=== PATIENT | male | born 1985 | race Two or more races ===

== ENCOUNTER 2022-10-01 09:08 | Inpatient (IN) | payer OTHER ==
[~2022-10-01] VITALS: Ht 177.8 cm; Wt 99.8 kg
[~2022-10-01 09:08] MED LIST: BUPIVACAINE 0.5 % PF 150 MG/30 ML VIAL ONE; CELLULOSE,OXIDIZED 1 EA PACK MC ONE; CELLULOSE,OXIDIZED 1 EACH EACH MC ONE; HEMOSTATIC MATRIX 8 ML 1 EACH PAD MC ONE; LIDOCAINE HCL/MPF 1% 30 ML VIAL IJ ONE
[2022-10-01] MEDS ORDERED: FENTANYL PF 250MCG/5ML AMPUL ONE (10:39)
[2022-10-01] MEDS ORDERED: FAMOTIDINE/PF INJ 20 MG/2 ML VIAL IV ONE (10:40)
[2022-10-01] MEDS ORDERED: FENTANYL PF 100MCG/2ML AMPUL ONE (10:40)
[2022-10-01] MEDS ORDERED: ATRACURIUM 100MG/10 ML MDV IV ONE (10:40)
[2022-10-01] MEDS ORDERED: HEPARIN SODIUM, PORCINE 5000 UNITS/1 ML VIAL ONE (10:41)
[2022-10-01] MEDS ORDERED: protAMINE SULFATE 10 MG/ML VIAL IV ONE (10:41)
[2022-10-01] MEDS ORDERED: DEXTROSE 50%-WATER 50 ML DISP.SYRIN ONE (10:56)
[2022-10-01 11:01] LABS: BASOPHILS # (AUTO) 0.2 K/uL (0.0-0.2); BASOPHILS % (AUTO) 1.7 % (0.0-2.0); EOSINOPHILS # (AUTO) 0.3 K/uL (0.0-0.7); EOSINOPHILS % (AUTO) 3.2 % (0.0-6.0); HEMATOCRIT 39 % (39-51); HEMOGLOBIN 13.2 g/dL (13.5-17.5); LYMPHOCYTES # (AUTO) 2.1 K/uL (0.8-4.8); LYMPHOCYTES % (AUTO) 23.5 % (20.0-44.0); MEAN CORPUSCULAR HEMOGLOBIN 30 PG (26.0-33.0); MEAN CORPUSCULAR HGB CONC 34 g/dl (31.0-36.0); MEAN CORPUSCULAR VOLUME 87 fL (80-96); MONOCYTES % (AUTO) 10.7 % (2.0-12.0); NEUTROPHILS # (AUTO) 5.6 K/uL (1.8-8.9); NEUTROPHILS % (AUTO) 60.9 % (43.0-81.0); PLATELET COUNT (AUTO) 192 K/uL (150-450); RED BLOOD CELL COUNT(AUTO) 4.47 MIL/uL (4.5-6.0); RED CELL DISTRIBUTION WIDTH 15.2 % (11.5-15.0); WHITE BLOOD COUNT (AUTO) 9.2 K/uL (4.3-11.0)
[2022-10-01 11:29] LABS: CALCIUM, SERUM 9.9 mg/dL (8.5-10.1); CREATININE 11.7 mg/dL (0.6-1.3); POTASSIUM 6.3 mmol/L (3.5-5.1)
[2022-10-01 13:00] VITALS: BP 147/93; TEMP 97.8; O2SAT 96
[2022-10-01] MEDS ORDERED: SERT50TA12 PO (13:07)
[2022-10-01] MEDS ORDERED: LORA-259 PO (13:07)
[2022-10-01] MEDS ORDERED: CALC667C6 PO (13:07)
[2022-10-01] MEDS ORDERED: HYDR-3980 PO (13:07)
[2022-10-01] MEDS ORDERED: PREG-59 PO (13:07)
[2022-10-01] MEDS ORDERED: LATA2.5D15 EACHEYE (13:07)
[2022-10-01] MEDS ORDERED: AMLO-212 PO (13:07)
[2022-10-01] MEDS ORDERED: FOLI0.8T2 PO (13:07)
[2022-10-01] MEDS ORDERED: NIFE90TA61 PO (13:07)
[2022-10-01] MEDS ORDERED: LEVO75TA7 PO (13:07)
[2022-10-01] MEDS ORDERED: DORZ10DR11 EACHEYE (13:07)
[2022-10-01 13:15] VITALS: BP 147/93; TEMP 97.8; O2SAT 96
[2022-10-01] MEDS: NIFEdipine XL (30MG) 30 MG TAB PO SCH (14:30)
[2022-10-01] MEDS ORDERED: ACETAMINOPHEN 325 MG TABLET PO PRN (14:30)
[2022-10-01] MEDS ORDERED: LORAZEPAM 1 MG TABLET PO PRN (14:30)
[2022-10-01] MEDS ORDERED: ONDANSETRON HCL/PF 4 MG/2 ML VIAL IVP PRN (14:30)
[2022-10-01] MEDS ORDERED: DEXTROSE 50%-WATER 50 ML DISP.SYRIN IV PRN (14:30)
[2022-10-01] MEDS: AMLODIPINE BESYLATE 5 MG TABLET PO SCH (14:30)
[2022-10-01 16:00] VITALS: BP 138/74; TEMP 97.8; O2SAT 96
[2022-10-01] MEDS: PREGABALIN 100 MG CAPSULE PO SCH (17:06)
[2022-10-01] MEDS: BLOOD SUGAR DIAGNOSTIC 1 EACH STRIP IN SCH ×2 (17:15→21:29)
[2022-10-01] MEDS: TIMOLOL MAL/DORZOLAM HCL OPHTH 10 ML BOTTLE EACHEYE SCH (17:15)
[2022-10-01] MEDS: CALCIUM ACETATE 667 MG CAP/TAB PO SCH (17:18)
[2022-10-01 19:30] VITALS: BP 154/97; TEMP 99.2; O2SAT 96
[2022-10-01] MEDS: HYDROCODONE/APAP 10/325MG TABLET PO PRN (20:44)
[2022-10-01] MEDS ORDERED: LATANOPROST EYE DROP 0.005% 2.5 ML BOTTLE EACHEYE SCH (22:00)
[2022-10-02 00:22] VITALS: BP 97/72; TEMP 98; O2SAT 97
[2022-10-02] MEDS: BLOOD SUGAR DIAGNOSTIC 1 EACH STRIP IN SCH ×3 (06:36→17:41)
[2022-10-02 06:57] LABS: BASOPHILS # (AUTO) 0.1 K/uL (0.0-0.2); BASOPHILS % (AUTO) 1.5 % (0.0-2.0); EOSINOPHILS # (AUTO) 0.4 K/uL (0.0-0.7); EOSINOPHILS % (AUTO) 4.8 % (0.0-6.0); HEMATOCRIT 40 % (39-51); HEMOGLOBIN 12.8 g/dL (13.5-17.5); LYMPHOCYTES # (AUTO) 1.9 K/uL (0.8-4.8); MEAN CORPUSCULAR HEMOGLOBIN 29 PG (26.0-33.0); MEAN CORPUSCULAR HGB CONC 32 g/dl (31.0-36.0); MEAN CORPUSCULAR VOLUME 89 fL (80-96); MONOCYTES % (AUTO) 10.6 % (2.0-12.0); NEUTROPHILS # (AUTO) 5.9 K/uL (1.8-8.9); NEUTROPHILS % (AUTO) 63.1 % (43.0-81.0); PLATELET COUNT (AUTO) 183 K/uL (150-450); RED BLOOD CELL COUNT(AUTO) 4.49 MIL/uL (4.5-6.0); RED CELL DISTRIBUTION WIDTH 15.3 % (11.5-15.0); WHITE BLOOD COUNT (AUTO) 9.3 K/uL (4.3-11.0)
[2022-10-02] MEDS ORDERED: LEVOTHYROXINE SODIUM 75 MCG TABLET PO SCH (07:30)
[2022-10-02] MEDS ORDERED: PANTOPRAZOLE 40 MG TABLET.DR PO SCH (07:30)
[2022-10-02 07:32] LABS: CALCIUM, SERUM 9.6 mg/dL (8.5-10.1); MAGNESIUM 2.4 mg/dL (1.8-2.4); POTASSIUM 5.5 mmol/L (3.5-5.1)
[2022-10-02 07:37] LABS: THYROID STIMULATING HORMONE 1.072 uIU/mL (0.358-3.74)
[2022-10-02] MEDS: MORPHINE SULFATE INJ 2 MG/ML DISP.SYRIN IV PRN ×2 (07:55→15:52)
[2022-10-02] MEDS: CALCIUM ACETATE 667 MG CAP/TAB PO SCH ×3 (07:55→17:41)
[2022-10-02 08:37] LABS: CREATININE 10.2 mg/dL (0.6-1.3); PHOSPHORUS 10.2 mg/dL (2.5-4.9)
[2022-10-02] MEDS: PREGABALIN 100 MG CAPSULE PO SCH ×3 (08:38→17:41)
[2022-10-02] MEDS: TIMOLOL MAL/DORZOLAM HCL OPHTH 10 ML BOTTLE EACHEYE SCH ×2 (08:38→17:39)
[2022-10-02] MEDS: AMLODIPINE BESYLATE 5 MG TABLET PO SCH (08:40)
[2022-10-02] MEDS: HYDROCODONE/APAP 10/325MG TABLET PO PRN ×2 (08:41→17:41)
[2022-10-02] MEDS: NIFEdipine XL (30MG) 30 MG TAB PO SCH (08:41)
[2022-10-02] MEDS ORDERED: VIT B CMPLX 3/FA/VIT C/BIOTIN 1 TAB TABLET PO SCH (09:00)
[2022-10-02] MEDS ORDERED: SERTRALINE HCL 50 MG TABLET PO SCH (09:00)
[2022-10-02] MEDS: INSULIN REGULAR, HUMAN 100 UNIT/ML 3 ML VIAL SQ PRN ×2 (11:47→17:46)
[2022-10-02] MEDS ORDERED: ALTEPLASE CATHFLO 2 MG/VIAL XX ONE ×2 (13:30→14:00)
[2022-10-02 15:54] VITALS: BP 158/94; TEMP 97.9; O2SAT 98
[2022-10-03] MEDS ORDERED: NEOMY SULF/BACITRAC ZN/POLY 15 GM TUBE TP SCH (09:00)
== END 2022-10-02 22:33 | disposition home health service (06) | DRG 622 ==
LOC: DS 09:08 → MED 12:37 → TELE 13:42
PROC: 5A1D70Z Performance of Urinary Filtration, Intermittent, Less than 6 Hours Per Day (ICD-10-PCS; principal; 2022-10-01)
PROC: 0JBQ0ZZ Excision of Right Foot Subcutaneous Tissue and Fascia, Open Approach (ICD-10-PCS; 2022-10-02)
PROC: 0JBR0ZZ Excision of Left Foot Subcutaneous Tissue and Fascia, Open Approach (ICD-10-PCS; 2022-10-02)
DX: E87.5 Hyperkalemia (principal); N18.6 End stage renal disease; I12.0 Hypertensive chronic kidney disease with stage 5 chronic kidney disease or end stage renal disease; L97.418 Non-pressure chronic ulcer of right heel and midfoot with other specified severity; L97.428 Non-pressure chronic ulcer of left heel and midfoot with other specified severity; E11.22 Type 2 diabetes mellitus with diabetic chronic kidney disease; Z99.2 Dependence on renal dialysis; E03.9 Hypothyroidism, unspecified; E66.9 Obesity, unspecified; E11.42 Type 2 diabetes mellitus with diabetic polyneuropathy; E11.621 Type 2 diabetes mellitus with foot ulcer; M89.9 Disorder of bone, unspecified; Z68.31 Body mass index [BMI] 31.0-31.9, adult
CPT/HCPCS: 36415; 71045-TC; 80048-TC; 80061-TC; 82962-TC; 83735-TC; 84100-TC; 84132-TC; 84443-TC; 85025-TC; 90935-TC; A6403; G0378; J1644; J1815; J2270; J2720; J2997; J3010; J3490; J7030

== ENCOUNTER 2022-11-13 06:04 | Inpatient (IN) | payer OTHER ==
[~2022-11-13] VITALS: Ht 177.8 cm; Wt 101.6 kg
[~2022-11-13 06:04] MED LIST changes: +AMLO-212 PO; -BUPIVACAINE 0.5 % PF 150 MG/30 ML VIAL ONE; +CALC667C6 PO; -CELLULOSE,OXIDIZED 1 EA PACK MC ONE; -CELLULOSE,OXIDIZED 1 EACH EACH MC ONE; +DORZ10DR11 EACHEYE; +FOLI0.8T2 PO; -HEMOSTATIC MATRIX 8 ML 1 EACH PAD MC ONE; +HYDR-3980 PO; +LATA2.5D15 EACHEYE; +LEVO75TA7 PO; -LIDOCAINE HCL/MPF 1% 30 ML VIAL IJ ONE; +LORA-259 PO; +NIFE90TA61 PO; +PREG-59 PO; +SERT50TA12 PO
[2022-11-13 07:30] VITALS: BP 189/106; TEMP 98.2; O2SAT 96
[2022-11-13] MEDS ORDERED: ANESTHESIA TRAY IN PYXIS 1 EA TRAY MC ONE (08:40)
[2022-11-13] MEDS ORDERED: FENTANYL PF 100MCG/2ML AMPUL ONE ×3 (08:42→16:21)
[2022-11-13] MEDS ORDERED: PROPOFOL 0 ML ONE (08:42)
[2022-11-13] MEDS ORDERED: FAMOTIDINE/PF INJ 20 MG/2 ML VIAL IV ONE (08:43)
[2022-11-13] MEDS ORDERED: MIDAZOLAM HCL 2 MG/2ML VIAL ONE ×2 (08:43→14:36)
[2022-11-13] MEDS ORDERED: LIDOCAINE HCL/MPF 1% 30 ML VIAL IJ ONE (08:45)
[2022-11-13] MEDS ORDERED: CELLULOSE,OXIDIZED 1 EA PACK MC ONE (08:45)
[2022-11-13 09:52] LABS: BASOPHILS # (AUTO) 0.1 K/uL (0.0-0.2); BASOPHILS % (AUTO) 1.4 % (0.0-2.0); EOSINOPHILS # (AUTO) 0.2 K/uL (0.0-0.7); EOSINOPHILS % (AUTO) 2.6 % (0.0-6.0); HEMATOCRIT 37 % (39-51); LYMPHOCYTES # (AUTO) 1.6 K/uL (0.8-4.8); LYMPHOCYTES % (AUTO) 17.2 % (20.0-44.0); MEAN CORPUSCULAR HEMOGLOBIN 29 PG (26.0-33.0); MEAN CORPUSCULAR HGB CONC 32 g/dl (31.0-36.0); MEAN CORPUSCULAR VOLUME 88 fL (80-96); MONOCYTES # (AUTO) 1.1 K/uL (0.1-1.30); MONOCYTES % (AUTO) 12.4 % (2.0-12.0); NEUTROPHILS # (AUTO) 6.2 K/uL (1.8-8.9); NEUTROPHILS % (AUTO) 66.4 % (43.0-81.0); PLATELET COUNT (AUTO) 185 K/uL (150-450); RED BLOOD CELL COUNT(AUTO) 4.21 MIL/uL (4.5-6.0); WHITE BLOOD COUNT (AUTO) 9.3 K/uL (4.3-11.0)
[2022-11-13 10:03] LABS: CALCIUM, SERUM 9.6 mg/dL (8.5-10.1); POTASSIUM 4.4 mmol/L (3.5-5.1)
[2022-11-13 10:18] LABS: CREATININE 8.4 mg/dL (0.6-1.3)
[2022-11-13] MEDS ORDERED: PAPAVERINE HCL 30 MG/ML 10 MLVIAL ONE (12:52)
[2022-11-13] MEDS ORDERED: CELLULOSE,OXIDIZED 1 EACH EACH MC ONE ×2 (12:53)
[2022-11-13] MEDS ORDERED: BUPIVACAINE 0.5 % PF 150 MG/30 ML VIAL ONE ×2 (14:42→14:47)
[2022-11-13] MEDS ORDERED: LABETALOL HCL IV 100MG VIAL ONE (15:19)
[2022-11-13] MEDS ORDERED: hydrALAZINE HCL IV 20 MG VIAL ONE (15:27)
[2022-11-13] MEDS ORDERED: POLYMYXIN B SULFATE 500,000 UNITS ONE (15:38)
[2022-11-13] MEDS ORDERED: LIDOCAINE 1% INJ 50 ML MDV IJ ONE (16:02)
[2022-11-13] MEDS ORDERED: HYDROMORPHONE 1 MG/1 ML DISP.SYRIN ONE (17:39)
[2022-11-13] MEDS: HYDROCODONE/APAP 5/325MG TABLET PO PRN (18:26)
[2022-11-13] MEDS ORDERED: LORAZEPAM INJ 2 MG/ML VIAL IV PRN (20:30)
[2022-11-13] MEDS: MORPHINE SULFATE INJ 2 MG/ML DISP.SYRIN IV PRN (23:24)
[2022-11-14] MEDS: HYDROCODONE/APAP 5/325MG TABLET PO PRN ×2 (02:13→09:37)
[2022-11-14] MEDS: MORPHINE SULFATE INJ 2 MG/ML DISP.SYRIN IV PRN ×3 (03:24→14:26)
[2022-11-14 07:30] VITALS: BP 121/81; TEMP 98.1; O2SAT 100
[2022-11-14] MEDS ORDERED: HYDR-3973 PO (12:03)
[2022-11-15 03:06] LABS: HEPATITIS B SURFACE AB Reactive (.)
== END 2022-11-14 14:48 | disposition home or self-care (01) | DRG 673 ==
LOC: DS 06:04 → MED 06:06
PROVIDERS: ADMIT Nurse Practitioner Acute Care; ATTEND Nurse Practitioner Acute Care
PROC: 03180ZD Bypass Left Brachial Artery to Upper Arm Vein, Open Approach (ICD-10-PCS; principal; 2022-11-13)
PROC: 5A1D70Z Performance of Urinary Filtration, Intermittent, Less than 6 Hours Per Day (ICD-10-PCS; 2022-11-13)
DX: I12.0 Hypertensive chronic kidney disease with stage 5 chronic kidney disease or end stage renal disease (principal); N18.6 End stage renal disease; Z99.2 Dependence on renal dialysis; E11.22 Type 2 diabetes mellitus with diabetic chronic kidney disease; E03.9 Hypothyroidism, unspecified; E66.9 Obesity, unspecified; E78.5 Hyperlipidemia, unspecified; F39 Unspecified mood [affective] disorder; Z68.32 Body mass index [BMI] 32.0-32.9, adult; Z76.82 Awaiting organ transplant status
CPT/HCPCS: 36415; 71045-TC; 80048-TC; 85025-TC; 86706; 87081-TC; 87340; 90935-TC; A6209; G0378; J0360; J0690; J1170; J1644; J2060; J2250; J2270; J2440; J3010; J3490; J7030